=== PATIENT | female | born 1935 | race Caucasian/White ===

== ENCOUNTER 2017-11-10 20:24 | Emergency (ER) | payer OTHER ==
[~2017-11-10] VITALS: Ht 167.6 cm; Wt 75.8 kg
[~2017-11-10 20:24] MED LIST: AMBIEN5 MG PO; AQUAPHOR OINTM105 GM TP; ASPIR 8181 M1 PO; ASPIRIN81 M2 PO; CEFTRIAXONE2 G1 IM; CLONIDINE HCL0.1 MG PO; FUROSEMIDE20 MG PO; FUROSEMIDE40 MG PO; GABAPENTIN100 MG PO; GABAPENTIN300 MG PO; LANTUS 10100 UNITS/ SC; LITE COAT ASPI325 M1 PO; LOSARTAN POTAS100 MG PO; METOPROLOL TART50 MG PO; PENTOXIFYLLINE400 MG PO; POTASSIUM CHLO10 ME3 PO; PRAVACHOL40 MG PO; VERAPAMIL HCL240 MG PO; VITAMIN D2000 UNIT PO; [UNRECOGNIZED DRUG - SUPPLY] TP
[2017-11-10 22:44] LABS: BASOPHIL COUNT 0.1 K/uL (0-0.1); EOSINOPHIL (%) 0.4 % (0-5); IMMATURE GRANULOCYTE (%) 0.4 % (0.0-0.7); LYMPHOCYTE COUNT 1.4 K/uL (1.0-2.8); MCH 30.6 PG (29.0-34.0); MCHC 33.9 G/DL (30.0-36.0); MCV 90.2 FL (83-99); MEAN PLAT.VOLUME 11.1 uM^3 (9.5-12.4); MONOCYTE (%) 6.3 % (3-12); MONOCYTE COUNT 0.6 K/uL (0-0.8); NEUTROPHIL (%) 78.8 % (45-76); PLATELET COUNT 142 K/uL (156-360); RBC DIS.WIDTH-CV 12.7 % (11.8-14.6); RBC DIS.WIDTH-SD 42.2 % (39-53); RED BLOOD COUNT 3.99 M/uL (3.80-5.20); WHITE BLOOD COUNT 10.2 K/uL (4.1-10.2)
[2017-11-10 22:54] LABS: CHLORIDE 103 mEq/L (99-109); POTASSIUM 4.1 mEq/L (3.7-5.4); SODIUM 142 mEq/L (136-147)
[2017-11-10 22:56] LABS: GLUCOSE 233 mg/dL (70-99)
[2017-11-10 22:57] LABS: ANION GAP 11 MEQ/L (2-14)
[2017-11-10 23:00] LABS: GFR ESTIMATE (CALCULATED) > 59 mL/min/
[2017-11-10 23:01] LABS: UREA NITROGEN (BUN) 18 mg/dL (9-23)
[2017-11-10 23:02] LABS: TROP-I INTERPRETATION NEGATIVE; TROPONIN-I < 0.01 ng/mL (0.0-0.30)
[2017-11-10 23:59] LABS: ADD MIUA? YES; BILIRUBIN NEGATIVE; BLOOD NEGATIVE; COLOR YELLOW ((YELLOW)); GLUCOSE (STRIP) NEGATIVE; KETONES NEGATIVE; LEUKOCYTES SMALL; NITRITE NEGATIVE; PROTEIN (STRIP) 30; SPECIFIC GRAVITY 1.012 (1.000-1.030)
[2017-11-11 00:09] LABS: BACTERIA 1+ /HPF; EPITHELIAL CELLS RARE /HPF; HYALINE CASTS 0-5 /LPF; MUCUS TRACE /LPF; RED BLOOD CELLS 0-5 /HPF (0-5); UCUL ADDED? YES
[2017-11-11] MEDS ORDERED: TYLENOL WITH C1 EACH PO (00:47)
[2017-11-11] MEDS ORDERED: LIDOCAINE700 MG TP (00:47)
[2017-11-11] MEDS ORDERED: KEFLEX500 MG PO (00:47)
[2017-11-11 00:55] VITALS: BP 158/69
== END 2017-11-11 01:20 ==
LOC: EME 20:24
PROVIDERS: Emergency Medicine
DX: M54.5 Low back pain (principal); N39.0 Urinary tract infection, site not specified; W18.30XA Fall on same level, unspecified, initial encounter; Z95.1 Presence of aortocoronary bypass graft; Z95.5 Presence of coronary angioplasty implant and graft; Z85.9 Personal history of malignant neoplasm, unspecified
CPT/HCPCS: 72125; 72128; 72131; 72170; 80048; 81003; 84484; 85025; 87086; 93005; 99281; 99284